=== PATIENT | female | born 1955 | race Two or more races ===

== ENCOUNTER → 2024-08-14 | Outpatient (CLI) | payer MEDICARE, SELFPAY ==
--- NOTE | 2024-08-14 08:30 | XR_ITS ---
Examination: Screening digital mammography, bilateral Computer aided detection 3-D breast Tomosynthesis, bilateral Date and time of exam: August 14, 2024 0814 hours Compared to mammograms dating to April 07, 2015 Indication: Screening, left breast pain one year Technique: Nonmagnified MLO, CC views of the breasts to been obtained, reconstructed from 3-D Tomosynthesis images. R2 computer aided detection program utilized for evaluation of suspicious masses and/or abnormal calcifications. 3-D Tomosynthesis images obtained. Findings: Scattered areas of fibroglandular density Benign calcifications 10 mm oval mass partially circumscribed retroareolar region right breast IMPRESSION: BI-RADS Category 0: Incomplete: Need additional imaging evaluation 10 mm circumscribed oval mass retroareolar region right breast, recommend follow-up spot tomographic views retroareolar region right breast right breast sonography to complete the workup
== END | disposition home or self-care (01) ==
PROVIDERS: PCP Physician Assistant; Referring Provider Physician Assistant; Visit Provider Physician Assistant
DX: Z12.31 Encounter for screening mammogram for malignant neoplasm of breast (principal); N63.41 Unspecified lump in right breast, subareolar
CPT/HCPCS: 77063; 77067

== ENCOUNTER → 2024-10-25 | Outpatient (CLI) | payer MEDICARE, SELFPAY ==
--- NOTE | 2024-10-25 09:45 | XR_ITS ---
Examination: Diagnostic digital mammography, unilateral, right Computer aided detection 3-D breast Tomosynthesis, unilateral Date and time of exam: October 25, 2024 0910 hours INDICATIONS: Mammogram August 14, 2024 10 mm oval mass retroareolar region right breast Technique: Nonmagnified MLO, CC views of the right breast have been obtained, reconstructed from 3-D Tomosynthesis images. R2 computer aided detection program utilized for evaluation of suspicious masses and/or abnormal calcifications. 3-D Tomosynthesis images obtained. Findings: Scattered areas of fibroglandular density Focal asymmetry retroareolar region right breast remains on the spot compression views Impression: BI-RADS category 0: Incomplete: Need additional imaging evaluation Follow-up right breast sonography is needed
== END | disposition home or self-care (01) ==
LOC: CDIM 08:59
PROVIDERS: Referring Provider Physician Assistant; Visit Provider Physician Assistant
DX: R92.8 Other abnormal and inconclusive findings on diagnostic imaging of breast (principal)
CPT/HCPCS: 77061; 77065; G0279

== ENCOUNTER → 2024-11-13 | Outpatient (CLI) | payer MEDICARE, MEDICAID, SELFPAY ==
--- NOTE | 2024-11-13 15:00 | XR_ITS ---
Examination: Breast ultrasound, unilateral, right complete Date and time of exam: November 13, 2024 1501 hours INDICATIONS: Mammogram August 14, 2024 10 mm oval mass retroareolar region right breast Technique: Real-time pineda scale ultrasonographic imaging performed right breast including all 4 quadrants as well as nipple retroareolar and axillary region. Findings: No cystic or solid mass IMPRESSION: BI-RADS Category 1: Negative study
== END | disposition home or self-care (01) ==
PROVIDERS: PCP Physician Assistant; Referring Provider Physician Assistant; Visit Provider Physician Assistant
DX: N63.10 Unspecified lump in the right breast, unspecified quadrant (principal)
CPT/HCPCS: 76641

== ENCOUNTER 2025-01-20 06:40 | Day surgery (SDC) | payer MEDICARE, MEDICAID, SELFPAY ==
[2025-01-17 12:33] VITALS: BMI 39.9
[2025-01-20] VITALS (13 sets, daily range): BP systolic 150–177; BP diastolic 63–103; PULSE 76–93; RESP 14–82; TEMP 36.2–36.4; O2SAT 97–100; BMI 41.5
[2025-01-20] MEDS: SODIUM CHLORIDE 0.9% 500 ML 500 ML 100 ML IV (07:26)
[2025-01-20] MEDS: DiphenhydrAMINE INJ 50 MG/ML VIAL 25 MG IV (07:27)
[2025-01-20] MEDS: fentaNYL CIT INJ 50 mCg/ML AMP 2ML (ASD USE ONLY) IV (07:27)
[2025-01-20] MEDS: MIDAZOLAM INJ 1 MG/ML VIAL 2 ML (ASD USE ONLY) 2 MG IV (07:32)
== END 2025-01-20 08:38 | disposition home or self-care (01) ==
PROVIDERS: PCP Physician Assistant; Referring Provider Surgery; Visit Provider Surgery
PROC: 0DBE8ZX Excision of Large Intestine, Via Natural or Artificial Opening Endoscopic, Diagnostic (ICD-10-PCS; CPT 45380; principal; 2025-01-20 07:30)
DX: Z12.11 Encounter for screening for malignant neoplasm of colon (principal); D12.2 Benign neoplasm of ascending colon; D12.3 Benign neoplasm of transverse colon; K64.4 Residual hemorrhoidal skin tags; E11.9 Type 2 diabetes mellitus without complications; E78.00 Pure hypercholesterolemia, unspecified; I10 Essential (primary) hypertension; Z86.0101 Personal history of adenomatous and serrated colon polyps; Z98.51 Tubal ligation status; Z79.84 Long term (current) use of oral hypoglycemic drugs; Z79.4 Long term (current) use of insulin; Z79.899 Other long term (current) drug therapy
CPT/HCPCS: 45385; 45380; A4649; J1200; J2250; J3010; J7040

== ENCOUNTER 2025-02-08 16:30 | Emergency (ER) | payer MEDICARE, MEDICAID, SELFPAY ==
[2025-02-08 16:38] VITALS: BP 161/82; PULSE 91; RESP 18; TEMP 36.8; O2SAT 98; BMI 41.3
--- NOTE | 2025-02-08 16:48 | XR_ITS ---
Examination: Right elbow 3 views Technique: Elbow AP, oblique, lateral 3 views Exam date and time: February 08, 2025 1543 hours INDICATIONS: Injury to the elbow 2 days ago, elbow pain FINDINGS: No fracture or dislocation No foreign body IMPRESSION: No fracture or dislocation.
--- NOTE | 2025-02-08 16:48 | XR_ITS ---
Examination: Humerus 2 views right Technique: Humerus, AP lateral 2 views Date and time of exam: February 08, 2025, 1736 hours INDICATIONS: Injury to the arm to days ago arm pain FINDINGS: Limited study, these images do not include the distal humerus Visualize shaft and humerus intact. IMPRESSION: Limited study No acute fracture demonstrated
--- NOTE | 2025-02-08 16:48 | XR_ITS ---
Examination: Shoulder,right, 3 views Technique: Shoulder AP internal rotation, AP external rotation, Y view shoulder, 3 views Exam date and time :February 08, 2025 1727 hours INDICATIONS: Intraoperative shoulder 2 days ago with shoulder pain. FINDINGS: No fracture or shoulder dislocation No AC joint separation IMPRESSION: No shoulder fracture or dislocation
--- NOTE | 2025-02-08 17:20 | XR_ITS ---
Examination:Right hip AP, lateral, AP pelvis 3 views Technique: Hip AP lateral, AP pelvis, 3 views Exam date and time: February 08, 2025 1722 hours INDICATIONS: Injury to the right hip 2 days ago with right hip pain FINDINGS: Prominent osteopenia No right hip fracture or dislocation Left hip bones of the pelvis is intact IMPRESSION: No acute hip or pelvic fracture If right hip pain persists, recommend follow-up AP pelvis in 1-2 days
--- NOTE | 2025-02-08 17:21 | PD.EDRME ---
Rapid Medical Screening Exam RME Arrival date/time: 02/08/25 16:30 This is a 69-year-old female that comes into the emergency room with complaints of a fall. Patient states that she has pain to her right hip right shoulder and right elbow. Patient has a history of diabetes. I have greeted and performed a focused initial assessment of this patient. Initial appropriate labs ordered at this time. A comprehensive ED assessment and evaluation of the patient and analysis of all test and completion of medical decision making process will be conducted by additional ED provider. Chief Complaint: Fall Time Seen by Provider: 02/08/25 16:40 Vital signs: Vital Signs Temperature 98.2 F 02/08/25 16:38 Pulse Rate 91 02/08/25 16:38 Respiratory Rate 18 02/08/25 16:38 Blood Pressure 161/82 H 02/08/25 16:38 Pulse Oximetry (%) 98 02/08/25 16:38 Oxygen Delivery Method Room Air 02/08/25 16:38
--- NOTE | 2025-02-08 21:41 | PD.EDFALL ---
ED Fall Injury RME/HPI General Chief Complaint: Fall Stated Complaint: Left arm and left hip pain after fall Time Seen by Provider: 02/08/25 16:40 Arrival date/time: 02/08/25 16:30 RME / HPI RME / HPI Narrative: 69-year-old female that comes into the emergency room with complaints of a fall. Patient states that she has pain to her right hip right shoulder and right elbow. Patient has a history of diabetes. Patient denies any LOC denies any nausea or vomiting denies any other complaints no medications taken prior trauma. Related Data Home Medications ?Medication ?Instructions ?Recorded ?Confirmed insulin degludec 100 unit/mL (3 64 unit subcut QDAY 02/02/22 07/04/24 mL) subcutaneous pen (Tresiba FlexTouch U-100 insulin) semaglutide 1 mg/dose (4 mg/3 mL) 1 mg subcut QWEEK 02/02/22 07/04/24 subcutaneous pen injector (Ozempic) metformin 1,000 mg tablet 1,000 mg PO BID 07/04/24 07/04/24 Previous Rx's ?Medication ?Instructions ?Recorded sennosides 8.6 mg-docusate sodium 1 tab-cap PO QDAY PRN constipation 07/15/24 50 mg tablet (Senokot-S) #20 tabs Allergies Allergy/AdvReac Type Severity Reaction Status Date / Time sitagliptin Allergy Intermediate Rash Verified 02/08/25 16:34 Review of Systems Review of Systems Narrative Review of Systems: Review of system reviewed and within normal limits except mentioned in HPI ED Exam Narrative Physical exam: VITAL SIGNS: Reviewed. GENERAL APPEARANCE: Alert and interactive, follows commands, no acute distress, HEAD AND FACE: Non-traumatic. ENT: PERRL, pink conjunctivitis, eyelid no trauma, Mucous membrane moist. NECK: Supple, nontender, no nuchal rigidity. CHEST: No tenderness, no crepitus, no paradoxical movement, no retractions. LUNGS: Clear, well ventilated, symmetric, no rales, no wheezing, no ronchi, no stridor, good breath sounds bilaterally. HEART: Regular rate, regular rhythm, no murmur, no gallops. ABDOMEN: Soft, positive bowel sounds, nondistended, no guarding, nontender, no rebound, no masses, RECTAL: Deferred. GENITAL: Deferred. NEUROLOGICAL: Gross motor function intact sensory function intact, Appropriate for age. MUSCULOSKELETAL: low back nontender, full range of motion. EXTREMITIES: Right shoulder tenderness, right hip tenderness,, full range of motion. SKIN: Color pink, dry, no rash, no lacerations, no abrasions, no contusions. LYMPHATICS: Deferred. Course Quality Measures none Orders Category Date Time Status XR elbow comp RT min 3V Stat Exams 02/08/25 16:48 Completed XR hip RT w pelvis 2-3V Stat Exams 02/08/25 17:20 Completed XR humerus RT min 2V Stat Exams 02/08/25 16:48 Completed XR shoulder RT min 2V Stat Exams 02/08/25 16:48 Completed Vital Signs Vital signs: Vital Signs Temperature 98.2 F 02/08/25 16:38 Pulse Rate 91 02/08/25 16:38 Respiratory Rate 18 02/08/25 16:38 Blood Pressure 161/82 H 02/08/25 16:38 Pulse Oximetry (%) 98 02/08/25 16:38 Oxygen Delivery Method Room Air 02/08/25 16:38 Fall MDM Narrative MDM Narrative:: 69-year-old female that comes into the emergency room with complaints of a fall. Patient states that she has pain to her right hip right shoulder and right elbow. Patient has a history of diabetes. Patient denies any LOC denies any nausea or vomiting denies any other complaints no medications taken prior trauma. X-ray of the hip shoulder elbow all came back unremarkable results discussed with the patient. Patient was supplied with arm sling Patient appears nontoxic and hemodynamically stable .Decision to discharge the patient. The patient/family was given an opportunity to ask questions and understood their discharge instructions. Discharge instructions specifically included follow up provider and time frame, current and/or new medications and possible side effects, indications for sooner follow up or return to the emergency department, and the expected course of current diagnosis. Patient reports feeling better as well and giving evidence of significant clinical improvement, I believe patient is now a candidate for discharge. Patient data External records reviewed:: None Clinical information provided by:: patient Social determinants that could affect healthcare access:: none Patient has the following chronic illnesses:: None How is presenting disease/condition affected by chronic disease/condition?: no chronic disease Evaluation data The following diagnostics were reviewed and interpreted by me:: radiology exam(s) Lab and/or radiology exams considered but not ordered:: None Interpretation Summary: See results MDM Medications / Prescriptions Medications or Prescriptions considered but not ordered:: None Medication administrations:: None Consultations Consultation(s) initiated? (list below): No Diagnosis Fall Differential Diagnosis: dislocation of shoulder region and other (Hip pain, shoulder dislocation shoulder pain) Most likely diagnosis given after review of the tests above:: Fall, shoulder pain hip pain Admission Indicated Admission indicated?: not indicated Admission Request Was there a request for admission?: No Disposition Plan Disposition Plan: Discharge Discharge Attestation Discharge Attestation: The patient and all family members were given an opportunity to ask questions and understood the discharge instructions. Discharge instructions specifically effects, indications for sooner follow up or return to the emergency department, and the expected course of current diagnosis. Patient condition: Stable Discharge Plan Plan Patient Disposition: HOME (Self Care) Discharge Disposition comment: Stable Prescriptions/Referrals Prescriptions/Med Rec: No Action insulin degludec [Tresiba FlexTouch U-100] 100 unit/mL (3 mL) Insulin Pen 64 unit SUBCUT QDAY Ozempic 1 mg/dose (4 mg/3 mL) Pen Injector 1 mg SUBCUT QWEEK metformin 1,000 mg Tablet 1,000 mg PO BID sennosides-docusate sodium [Senokot-S] 8.6-50 mg tablet 1 tab-cap PO QDAY PRN (Reason: constipation) Qty: 20 0RF Referrals: Dawna Garcia PA-C [Primary Care Provider] - In 1 week Problem List Clinical Impression: Pain in right shoulder, Hip joint pain, Fall Patient/Caregiver Discharge Instructions Discharge Activity: activity as tolerated Education Materials: Understanding the Pain Response Additional Instructions: Thank you for the opportunity for serving you today. You are stable for discharged . You are advised to: Follow-up with your PCP in 1 to 2 days Return to ED for worsening of symptoms Increase oral fluids Take medication as prescribed Print Language: Occitan Stand Alone Forms: Destiny Award Info., Patient Portal Info Letter ADELINE/BENITA Supervising Physician HEATHER Supervising Physician: MD Zohreh
== END 2025-02-08 21:49 | disposition home or self-care (01) ==
PROVIDERS: Emergency Provider Emergency Medicine; PCP Physician Assistant
DX: M25.551 Pain in right hip (principal); M25.511 Pain in right shoulder; E11.9 Type 2 diabetes mellitus without complications; M25.521 Pain in right elbow
CPT/HCPCS: 73030; 73060; 73080; 73502; 99283

== ENCOUNTER 2025-02-26 12:58 | Outpatient (RCR) | payer MEDICARE, MEDICAID, SELFPAY ==
--- NOTE | 2025-02-26 13:34 | PTNOTE_ITS ---
PT OP Initial Eval Patient Information Outpatient Physical Therapy Treatment Date: 02/26/25 Visit Reasons: Right shoulder pain Medical Diagnosis: Right Shoulder Pain Treatment Dx #1: Right Shoulder Pain Start of Care: 02/26/25 Date of Onset: 6 months ago Smoking Status Smoking Status: Never smoker Initial Assessment Subjective: Pt is a 69 y/o female reports of chronic right shoulder pain (03/20) worsening 6 months ago. Pt mentioned she is seeing a specialist and mentioned surgery is a possibility due to torn tendon. Pt has received multiple cortisone shots which helps with the pain. Pt has limitation with lifting, overhead motions, chores, self care, cooking, cleaning, and performing recreational activities. Objective: Right Shoulder PROM: all motions are WNL Right Shoulder AROM Flexion: 160 deg Abduction: 150 deg External Rotation: 90 deg Internal Rotation: 70 deg Right Shoulder MMTs: grossly 3+/5 Right Scapula MMTs: grossly 3+/5 Palpation: TTP supraspinatus tendon Special Test (+) paulinokin-tamia Assessment: Pt demonstrate right shoulder pain consistent with rotator cuff involvement leading to difficulty with ADLs. Pt will attempt physical therapy if pain persist Pt will be refer back to provider for further consultation. Short Term and Thermodynamic Physicist Goals 1) Increase right shoulder AROM WFL in 6 wks to be able to perform overhead motions 2) Increase right shoulder MMTs grossly to 4-/5 in 6 wks to be able to perform chores 3) Increase right scapula MMTs grossly to 4-/5 in 6 wks to be able to perform self care activities 4) Decrease shoulder pain to 2/10 in 6 wks to be able to perform recreational activities 5) Indep with HEP Treatment Plan 1) Manual Therapy 2) Therapeutic Activities 3) Therapeutic Exercises 4) Modalities (ice, heat) Frequency and Duration: 2 x wk for 6 wks Certification Dates: 02/26/25 to 05/29/25 Procedure Charges OP PT Eval Mod Complex 30 minutes: Yes
== END 2025-03-10 23:59 | disposition home or self-care (01) ==
LOC: CPTX 12:58
PROVIDERS: PCP Physician Assistant; Referring Provider Physician Assistant; Visit Provider Physician Assistant
DX: M25.511 Pain in right shoulder (principal); G89.29 Other chronic pain
CPT/HCPCS: 97162

== ENCOUNTER 2025-03-26 10:00 | Outpatient (RCR) | payer MEDICARE, MEDICAID, SELFPAY ==
--- NOTE | 2025-03-11 11:31 | PT.ODAYNRPT ---
PT Outpatient Daily Note OP Daily Note Outpatient Physical Therapy Treatment Date: 03/11/25 Visit Reasons: right shoulder pain Subjective: pt reports R shoulder is sore and painful. Objective: Please see flow sheet for ther ex list. Assessment: Pt demonstrates poor activity tolerance due to pain response. Plan: Continue with POC. Length of Time (minutes) of Treatment: 30 Minutes CHIPPING MACHINE OPERATOR Service Modifier Method I: Divide the number of min of care provided by the CHIPPING MACHINE OPERATOR/KRYSTYNA by the total min of care provided then multiply by 100. If greater than 11 percent modifier is required. Method II: Divide the total time of care provided to patient by 10 (round to the nearest whole number) and add 1 min. to set the minimum time requirement. If treatment total was 60 min., then 10% of 6 min PT CQ modifier applied: CQ Modifier applied Procedure Charges Therapeutic Exercise 30 minutes: Yes
--- NOTE | 2025-03-13 10:54 | PT.ODAYNRPT ---
PT Outpatient Daily Note OP Daily Note Outpatient Physical Therapy Treatment Date: 03/13/25 Visit Reasons: right shoulder pain Subjective: Pt reports shoulder is a little sore but not too bad. Objective: Please see flow sheet for ther ex list. Assessment: Pt reports minimal pain with AAROM interventions but able to perform assigned reps. Plan: Continue with pOC. Length of Time (minutes) of Treatment: 30 Minutes Procedure Charges Therapeutic Exercise 30 minutes: Yes
--- NOTE | 2025-03-26 13:03 | PTNOTE_ITS ---
PT Outpatient Daily Note OP Daily Note Outpatient Physical Therapy Treatment Date: 03/26/25 Visit Reasons: right shoulder pain Subjective: Pt c/o moderate shoulder pain and soreness post last PT session. Objective: Please see flow sheet for ther ex list. Assessment: Slow progress with intervention due to pt pain response. Plan: Continue with pOC. Length of Time (minutes) of Treatment: 30 Minutes SUPERINTENDENT OPERATING Service Modifier Method I: Divide the number of min of care provided by the SUPERINTENDENT OPERATING/KRYSTYNA by the total min of care provided then multiply by 100. If greater than 11 percent modifier is required. Method II: Divide the total time of care provided to patient by 10 (round to the nearest whole number) and add 1 min. to set the minimum time requirement. If treatment total was 60 min., then 10% of 6 min PT CQ modifier applied: CQ Modifier applied Procedure Charges Therapeutic Exercise 30 minutes: Yes
== END 2025-04-10 23:59 | disposition home or self-care (01) ==
LOC: CPTX 10:00
PROVIDERS: PCP Physician Assistant; Referring Provider Physician Assistant; Visit Provider Physician Assistant
DX: M25.511 Pain in right shoulder (principal); G89.29 Other chronic pain
CPT/HCPCS: 97110

== ENCOUNTER 2025-04-14 10:55 | Emergency (ER) | payer MEDICARE, MEDICAID, SELFPAY ==
[2025-04-14 10:57] VITALS: BMI 38.4
[2025-04-14 11:11] VITALS: BP 148/78; PULSE 79; RESP 18; TEMP 36.9; O2SAT 97
--- NOTE | 2025-04-14 11:16 | XR_ITS ---
Examination:Left hip AP, lateral, AP pelvis 3 views Technique: Hip AP lateral, AP pelvis, 3 views Exam date and time:April 14, 2000 2512 noon INDICATIONS: Patient fell one week ago with injury of the hip, hip pain FINDINGS: No left hip fracture or dislocation Right hip bones of the pelvis intact IMPRESSION: No left hip fracture or dislocation.
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
[2025-04-14] MEDS: KETOROLAC INJ 60 MG/2 ML VIAL 30 MG IM (11:28)
== END 2025-04-14 13:44 | disposition home or self-care (01) ==
PROVIDERS: Emergency Provider Nurse Practitioner Family; PCP Physician Assistant
DX: S70.02XA Contusion of left hip, initial encounter (principal); W18.30XA Fall on same level, unspecified, initial encounter
CPT/HCPCS: 73502; 96372; 99284; J1885

== ENCOUNTER 2025-07-03 09:04 | Emergency (ER) | payer MEDICARE, MEDICAID, SELFPAY ==
[2025-07-03 09:05] VITALS: BMI 38.7
[2025-07-03 09:13] VITALS: BP 167/101; PULSE 85; RESP 18; TEMP 36.8; O2SAT 96
[2025-07-03 09:15] VITALS: BMI 41.1
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
== END 2025-07-03 10:35 | disposition home or self-care (01) ==
PROVIDERS: Emergency Provider Family Medicine; PCP Physician Assistant
DX: S13.4XXA Sprain of ligaments of cervical spine, initial encounter (principal); V49.9XXA Car occupant (driver) (passenger) injured in unspecified traffic accident, initial encounter; Y92.410 Unspecified street and highway as the place of occurrence of the external cause; Z79.84 Long term (current) use of oral hypoglycemic drugs
CPT/HCPCS: 70450; 72125; 99282